=== PATIENT | male | born 1980 | race Caucasian/White ===

== ENCOUNTER 2017-04-20 12:48 | Emergency (ER) | payer OTHER ==
[~2017-04-20] VITALS: Ht 175.3 cm; Wt 90.7 kg
[~2017-04-20 12:48] MED LIST: BACTRIM DS TAB1 EACH PO; CEPHALEXIN 500500 M3 PO; IBUPROFEN 800800 M1 PO; XANAX 0.25 MG0.25 MG PO
[2017-04-20 13:56] LABS: ABSOLUTE BASOPHILS 0.1 thou/uL (0.0-0.2); ABSOLUTE EOSINOPHILS 0.3 thou/uL (0.0-0.7); ABSOLUTE LYMPHOCYTES 1.6 thou/uL (0.8-5.3); ABSOLUTE MONOCYTES 0.6 thou/uL (0.0-1.2); ABSOLUTE NEUTROPHILS 5.1 thou/uL (1.6-8.1); BASOPHILS 0.9 %; EOSINOPHILS 3.4 %; HEMOGLOBIN 14.4 gm/dL (14.0-18.0); LYMPHOCYTES 21.4 %; MCHC 34.2 g/dL (28.0-37.0); MONOCYTES 7.9 %; MPV 6.6 fl. (7.2-11.1); NUCLEATED RBCS 0 /100WBC; PLATELET COUNT* 257 thou/uL (150-400); POLYS 66.4 %; RBC 5.32 mil/uL (4.50-6.00); RDW-CV 14.5 % (10.5-14.5); WBC 7.6 thou/uL (4.0-11.0)
[2017-04-20 14:00] LABS: ANION GAP 7 mmol/L (7-16); BUN 25 mg/dL (7-18); CALCIUM 8.2 mg/dL (8.5-10.1); CHLORIDE 106 mmol/L (98-107); CO2 28 mmol/L (21-32); GLUCOSE 97 mg/dL (70-99); SODIUM 141 mmol/L (136-145)
[2017-04-20 14:12] LABS: ALBUMIN 3.7 g/dL (3.4-5.0); ALKALINE PHOSPHATASE 120 U/L (46-116); LIPASE 43 U/L (73-393); SGOT 24 U/L (15-37); SGPT 30 U/L (30-65); TOTAL BILIRUBIN 0.7 mg/dL (<0.1-1.0); TOTAL PROTEIN 6.9 g/dL (6.4-8.2); TROPONIN-I LEVEL <0.06 ng/mL (<0.06)
[2017-04-20 14:23] VITALS: BP 127/70
--- NOTE | 2017-04-20 17:29 | EKG ---
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 : 1980 Requested By: Arpita Najera Order Number: [id number] MD: Dharmesh Sheth Measurements Intervals [place] Rate: 137 P: [place]: QRS: 64 QRSD: 159 T: 76 QT: 365 QTc: 552 Interpretive Statements Atrial fibrillation Nonspecific intraventricular conduction delay Borderline repolarization abnormality Artifact in lead(s) II,III,aVF,V1,V2,V3,V4,V5,V6 No previous ECG available for comparison Electronically Signed On 04-20-2017 17:28:47 PAPER [employer]AG INSPECTOR by Dharmesh Sheth [email or web address] <ELECTRONICALLY SIGNED> By: Dharmesh Sheth MD, [facility] 04/20/17 1728 1249 1249 Dharmesh Sheth MD, [facility] /EPI
== END 2017-04-20 14:26 | disposition home or self-care (01) ==
LOC: M.ERS 12:48
PROVIDERS: Personal Emergency Response Attendant
DX: F41.9 Anxiety disorder, unspecified (principal); G89.29 Other chronic pain; M54.9 Dorsalgia, unspecified; K86.1 Other chronic pancreatitis; F17.200 Nicotine dependence, unspecified, uncomplicated; Z88.8 Allergy status to other drugs, medicaments and biological substances